=== PATIENT | female | born 1980 | race Two or more races ===

== ENCOUNTER 2016-12-08 23:17 | Emergency (ER) | payer OTHER ==
[~2016-12-08] VITALS: Ht 149.9 cm; Wt 52.6 kg
--- NOTE | ~2016-12-08 | CT71 ---
[facility] A Service [facility] RADIOLOGY TEXT RESULTS PATIENT: MODESTA BANUELOS LOCATION: [facility] : [birth year] UNIT #: [id number] AGE: [address]: Geronimo Collier DO SEX: F ORDER DR: [id number] [facility] [address] [place], [place] [address] [id number] E MR#: [id number] Acc #: [id number] NAME: MODESTA BANUELOS : 1980 SEX: F STUDY DATE/TIME: 12/09/2016 0:35 UNIT: [facility] ROOM: STUDY DESCRIPTION: CT Head Wo Contrast Attending Physician: Geronimo Collier D.O. Ordering Physician: Geronimo Collier D.O. Primary Care Physician: Cyn Martin MEDICAL IMAGING REPORT This report is preliminary unless electronic signature is present EXAM CT head, noncontrast, 12/09/2016 HISTORY 36-year-old female in the ED complaining of 10-day history of unresolving headache. TECHNIQUE CT examination of the head without IV contrast. This CT exam was performed with one or more of the following radiation dose reduction techniques: automatic exposure control, adjustment of mA and/or kV according to patient size, and iterative reconstruction. FINDINGS The examination is negative. No evidence of intracranial hemorrhage, mass, mass effect, cerebral edema, hydrocephalus or additional abnormality. IMPRESSION Negative head CT examination. Dictated by... Montrell Gomez M.D. THIS IS AN ELECTRONICALLY VERIFIED REPORT Montrell Gomez M.D. at 12/09/2016 6:07 AM PHILOMENA/shiloh TD: 12/09/2016 02:07 JOB #: [id number] [facility] A Service [facility] RADIOLOGY TEXT RESULTS PATIENT: MODESTA BANUELOS LOCATION: [facility] : [birth year] UNIT #: [id number] AGE: [address]: Geronimo Collier DO SEX: F ORDER DR: MEDICAL IMAGING REPORT Page 1 of 1 COPY
[~2016-12-08 23:17] MED LIST: PHENERGAN PO; ROBAFEN AC SYR120 M1 PO; VIBRAMYCIN100 M1 PO
[2016-12-09 00:04] LABS: BASOPHIL% 0.2 % (0-2.5); EOSINOPHIL# 0.2 X10e3 (0-0.7); EOSINOPHIL% 2.5 % (0.0-7.0); HEMOGLOBIN 13.3 gm/dL (12.0-16.0); LYMPHOCYTE# 2.5 X10e3 (1.0-3.5); MEAN CORPUSCULAR HEMOGLOBIN 30.4 PG (28-34); MEAN CORPUSCULAR HGB CONC 33.4 g/dL (30-36); MONOCYTE# 0.5 X10e3 (0-1.0); MONOCYTE% 6.5 % (3.0-12.0); NEUTROPHIL% 55.8 % (40-75); PLATELET COUNT 279 X10e3 (140-420); RED CELL DISTRIBUTION WIDTH 13.3 % (11.0-15.5); WHITE BLOOD COUNT 7.1 X10e3 (4.0-10.5)
[2016-12-09 00:05] LABS: DIFF IND NO
[2016-12-09 00:17] LABS: URINE SOURCE CLEAN CATCH
[2016-12-09 00:28] LABS: ALBUMIN SERUM 3.9 g/dL (3.5-5.0); BILIRUBIN, DIRECT 0.1 mg/dL (0.0-0.2); BILIRUBIN,INDIRECT 0.6 mg/dL (0.0-0.9); BILIRUBIN,TOTAL 0.7 mg/dL (0.2-2.0); BUN/CREATININE RATIO 12.5; CREATININE SERUM 0.4 mg/dL (0.6-1.4); GLOM FILT RATE Estimated 135.9 mL/min (>60); POTASSIUM 3.3 mmol/L (3.5-5.1); PROTEIN TOTAL SERUM 7.6 g/dL (6.0-8.3)
[2016-12-09 00:31] LABS: URINE APPEARANCE CLEAR; URINE BILIRUBIN NEG (NEG); URINE BLOOD NEG (NEG); URINE COLOR YELLOW; URINE GLUCOSE NEG (NEG); URINE KETONE NEG (NEG); URINE LEUKOCYTE ESTERASE NEG (NEG); URINE NITRATE NEG (NEG); URINE PROTEIN NEG (NEG); URINE SPECIFIC GRAVITY 1.003 (1.003-1.035); URINE UROBILINOGEN 0.2 MG/DL (NEG)
[2016-12-09 00:35] LABS: INR 0.9; PROTHROMBIN TIME (PATIENT) 10.2 SECONDS (10.0-11.7)
[2016-12-09 00:36] LABS: CULTURE INDICATED? NO
== END 2016-12-09 02:05 | disposition home or self-care (01) ==
LOC: CED 23:17
PROVIDERS: Emergency Medicine
DX: R51 Headache (principal); Z72.820 Sleep deprivation; Z88.2 Allergy status to sulfonamides; Z88.1 Allergy status to other antibiotic agents
CPT/HCPCS: 36415; 70450; 80048; 80076; 81003; 84703; 85025; 85610; 96361; 96374; 96375; 99284; J1200; J2765